=== PATIENT | female | born 1990 | race Caucasian/White ===

== ENCOUNTER 2019-10-22 23:53 | Emergency (ER) | payer MEDICAID ==
[~2019-10-22 23:53] MED LIST: GUAI-41 PO; KETO5DRO80 OP; NO HOME MEDS; PRE NATAL VITAMINS
== END 2019-10-23 00:32 | disposition left against medical advice (07) ==
LOC: ER 23:53
DX: Z53.21 Procedure and treatment not carried out due to patient leaving prior to being seen by health care provider (principal)